=== PATIENT | male | born 1985 | race Caucasian/White ===

== ENCOUNTER 2016-07-19 08:38 | Emergency (ER) | payer OTHER ==
[2016-07-19] MEDS ORDERED: ONDANSETRON 4MG/2ML VIAL (J2405) As Ordered ONE (09:28)
[2016-07-19] MEDS ORDERED: KETOROLAC 30 MG/ML VIAL (J1885) As Ordered ONE (09:28)
[2016-07-19] MEDS ORDERED: GASTROGRAFIN SOLUTION 30ML (Q9963) As Ordered ONE (09:35)
[2016-07-19 09:49] LABS: BASO % 0.1 % (0.0-1.0); EOS % 0.8 % (0.0-3.0); LARGE UNSTAINED CELL # 0.1 K/mm3 (0.0-0.4); LARGE UNSTAINED CELL % 2.7 % (0.0-4.0); LYMPH % 30.2 % (24.0-44.0); MEAN CORPUSCULAR HEMOGLOBIN 30.4 pg (27.0-33.0); MEAN CORPUSCULAR HGB CONC 32.6 g/dl (32.0-36.5); MEAN CORPUSCULAR VOLUME 93.3 fl (80.0-96.0); MONO # 0.3 K/mm3 (0.0-0.8); NEUTROPHILS % 57.1 % (36.0-66.0); PLATELET COUNT, AUTOMATED 200 k/mm3 (150-450); RED CELL DISTRIBUTION WIDTH 11.9 % (11.5-14.5); WHITE BLOOD COUNT 3.4 K/mm3 (4.0-10.0)
[2016-07-19 10:06] LABS: ALBUMIN 4.2 GM/DL (3.2-5.2); ALKALINE PHOSPHATASE 56 U/L (45-117); ALT/SGPT 23 U/L (12-78); AMYLASE 72 U/L (25-115); ANION GAP 7 MEQ/L (8-16); AST/SGOT 12 U/L (15-37); BILIRUBIN,DIRECT 0.1 MG/DL (0.0-0.2); BILIRUBIN,TOTAL 0.4 MG/DL (0.2-1.0); BLOOD UREA NITROGEN 16 MG/DL (7-18); CALCIUM LEVEL 8.7 MG/DL (8.5-10.1); CARBON DIOXIDE LEVEL 29 MEQ/L (21-32); CHLORIDE LEVEL 105 MEQ/L (98-107); CREATININE FOR GFR 0.89 MG/DL (0.70-1.30); GLOMERULAR FILTRATION RATE > 60.0 (>60); GLUCOSE, FASTING 90 MG/DL (70-105); POTASSIUM SERUM 4.2 MEQ/L (3.5-5.1); SODIUM LEVEL 141 MEQ/L (136-145); TOTAL PROTEIN 7.7 GM/DL (6.4-8.2)
[2016-07-19] MEDS ORDERED: MORPHINE 4 MG/ML 1ML SYRINGE As Ordered ONE (10:36)
[2016-07-19] MEDS ORDERED: ISOVUE-370 76% 100ML VIAL (Q9967) As Ordered ONE (11:30)
--- NOTE | 2016-07-19 12:05 | REP ---
CT ABDOMEN/PELVIS WITH IV CONTRAST AND WITH ORAL CONTRAST: HISTORY: Right lower quadrant and left lower quadrant pain. Nausea, vomiting, and diarrhea. COMPARISON STUDY: June 15, 2015 CT CONTRAST DOSE: 100 mL of Isovue-[address] FINDINGS: Preliminary port engineer radiograph demonstrates air in nondilated loops of small bowel throughout the mid abdomen. The lung bases are clear on axial CT images. There is no evidence of pleural effusion. The liver and spleen are normal in size and homogeneous in texture. No adrenal lesion is seen. No pancreatic abnormality is observed. The gallbladder is unremarkable. No retroperitoneal mass or adenopathy is seen. Normal caliber aorta is noted. The kidneys enhance symmetrically and are morphologically intact. Small and large intestinal bowel loops are unremarkable in the abdomen and pelvis. A normal appendix is seen partially filled with oral barium. No periappendiceal inflammation. No evidence of free air or abnormal fluid collection. No bony destructive lesion or abdominal wall defect is seen. IMPRESSION: No acute intra-abdominal abnormality. Normal appendix seen in the right lower quadrant. Signed by Brandon Nicolas MD 07/19/2016 03:04 P
--- NOTE | 2016-07-19 12:20 | EDDOCDS ---
Physician Documentation [facility] Name: Jovani aShni Age: 31 yrs Sex: Male : 1985 Arrival Date: 07/19/2016 Time: 08:38 Bed I7 / 29 Private MD: Rosibel Pascual PA-C Disposition: 07/19/16 12:12 Discharged to Home/Self Care. Impression: Lower abdominal pain, unspecified. - Condition is Stable. - Discharge Instructions: Abdominal Pain, Adult. - Prescriptions for Bentyl 20 mg Oral Tablet - take 1 tablet by ORAL route every 6 hours As needed; 20 tablet. - Medication Reconciliation, Local Pharmacy Hours form. - Follow up: Emergency Department; When: As needed; Reason: Worsening of conditions. Follow up: Private Physician; When: 2 - 3 days; Reason: Wound/Symptom Recheck, Recheck today's complaints, Continuance of care. - Problem is new. - Symptoms are unchanged. Historical: - Allergies: no known allergies; - Home Meds: 1. Omeprazole Unknown Oral once daily 2. Depakote 500 mg Oral TbEC 2 tabs 2 times per day 3. Marinol 10 mg Oral cap 1 cap 2 times per day 4. prazosin 2 mg Oral cap 2 caps daily - PMHx: GERD; Migraine Headaches; PTSD; Lyme Disease; - PSHx: none; - Social history: Smoking status: Patient uses tobacco products, light tobacco smoker. No barriers to communication noted, The patient speaks fluent Greenlandic, Speaks appropriately for age. - Family history: Not pertinent. - : The pt / caregiver states he / she is not on anticoagulants. Home medication list is obtained from the patient. - Exposure Risk Screening:: None identified. Vital Signs: 07/19 09:06 BP 133 / 79; Pulse 74; Resp 16; Temp 98.6(TE); Pulse Ox 100% on R/A; Weight 65.32 kg / mlb1 144.01 lbs (R); Height 5 ft. 59 in. (302.26 cm) (R); Pain 5/10; 10:00 Pain 4/10; dsf 12:17 BP 142 / 82; Pulse 54; Resp 16; Temp 97.4; Pulse Ox 99% ; Pain 5/10; ja5 09:06 Body Mass Index 7.15 (65.32 kg, 302.26 cm) mlb1 MDM: 09:21 NS 0.9% 1000 ml IV at bolus once ordered. dt4 09:21 Ondansetron 4 mg IVP once ordered. dt4 09:21 ketorolac 30 mg IVP once ordered. dt4 09:21 IV Saline Lock ordered. dt4 09:21 Undress patient appropriately for examination ordered. dt4 09:22 CT ABD & PELVIS: IV and Oral Contrast Ordered. EDMS 09:23 Amylase Ordered. EDMS 09:23 Basic Metabolic Profile Ordered. EDMS 09:23 CBC with Diff Ordered. EDMS 09:23 Lipase Ordered. EDMS 09:23 Liver Profile Ordered. EDMS 09:23 Urinalysis Ordered. EDMS 09:23 CRP Ordered. EDMS 09:23 Urine Culture Ordered. EDMS 09:24 NOTHING BY MOUTH+DIET ordered. EDMS 09:45 Diatrizoate Meglumine & Sodium Liquid 10 ml PO once; mix in 290cc of water administer ja5 at 0945 ordered. 09:45 Diatrizoate Meglumine & Sodium Liquid 10 ml PO once; mix in 290cc of water administer ja5 at 1015 ordered. 09:49 Financial registration complete. mm15 10:04 [facility] Payment Agreement was scanned into [employer] and attached to record. mm15 10:30 morphine 4 mg IVP once ordered. dt4 Administered Medications: 09:36 Drug: NS 0.9% 1000 ml [sodium chloride 0.9 % injection solution] Route: IV; Rate: dsf bolus; Site: left antecubital; 11:22 Follow up: IV Status: Completed infusion; IV Intake: 1000ml jc4 09:36 Drug: Ondansetron 4 mg [ondansetron HCl 2 mg/mL intravenous solution (2 mL)] Route: dsf IVP; Site: left antecubital; 09:37 Drug: ketorolac 30 mg [ketorolac 30 mg/mL (1 mL) injection solution (1 mL)] Route: IVP; dsf Site: left antecubital; 10:00 Follow up: Pain 4/10 Adult; Response: Pain is unchanged, physician notified dsf 09:45 Drug: Diatrizoate Meglumine & Sodium 10 ml [diatrizoate meglumine and diat.sodium 66 jc4 %-10 % oral solution (10 mL)] Route: PO; 10:15 Drug: Diatrizoate Meglumine & Sodium 10 ml [diatrizoate meglumine and diat.sodium 66 jc4 %-10 % oral solution (10 mL)] Route: PO; 10:41 Not Given (pt driving ): morphine 4 mg IVP once dsf Signatures: Dispatcher [employer] EDAdilson Hernandez RN RN mlb1 Jaja Grijalva RN RN jc4 Merline Zee RN RN dsf Kostas Villatoro mm15 Little Ivy PA-C PALupe juarez4 Nadege ChoudhuryRN RN ja5 The chart was reviewed and I authenticate all verbal orders and agree with the evaluation and treatment provided.Attachments: 10:04 [facility] Payment Agreement mm15 MTDD
--- NOTE | 2016-07-19 12:21 | EDDOCDS ---
Nurse's Notes [facility] Name: Jovani Sahni Age: 31 yrs Sex: Male : 1985 Arrival Date: 07/19/2016 Time: 08:38 Bed I7 / 29 Private MD: Rosibel Pascual PA-C Diagnosis: Lower abdominal pain, unspecified Presentation: 07/19 09:02 Presenting complaint: Patient states: N/V/D and upset abdominal pain intermittent since mlb1 . Adult Sepsis Screening: The patient does not have new or worsening altered mentation. Patient's respiratory rate is less than 22. Systolic blood pressure is greater than 100. Patient has a qSOFA score of 0- Negative Sepsis Screen. Suicide/Homicide risk assessment- the patient denies having any suicidal and/or homicidal ideations and does not present with any other emotional, behavioral or mental health complaints. Status: Patient is not a private branch exchange service adviser or dependent. Transition of care: patient was not received from another setting of care. 09:02 Acuity: BC Level 3 mlb1 09:02 Method Of Arrival: Walkin/Carried/Asstd mlb1 Triage Assessment: 09:06 General: Appears in no apparent distress, Behavior is appropriate for age, cooperative. mlb1 Pain: Location: abdomen Pain currently is 4 out of 10 on a pain scale. HIV screening NA for this visit Offered previously. GI: Reports diarrhea, nausea, vomiting. Historical: - Allergies: no known allergies; - Home Meds: 1. Omeprazole Unknown Oral once daily 2. Depakote 500 mg Oral TbEC 2 tabs 2 times per day 3. Marinol 10 mg Oral cap 1 cap 2 times per day 4. prazosin 2 mg Oral cap 2 caps daily - PMHx: GERD; Migraine Headaches; PTSD; Lyme Disease; - PSHx: none; - Social history: Smoking status: Patient uses tobacco products, light tobacco smoker. No barriers to communication noted, The patient speaks fluent Salvadorean, Speaks appropriately for age. - Family history: Not pertinent. - : The pt / caregiver states he / she is not on anticoagulants. Home medication list is obtained from the patient. - Exposure Risk Screening:: None identified. Screenin:48 Screening information is obtained from the patient. Fall risk: No risks identified. ja5 Assistance ADL's: requires no assistance with activities of daily living. Abuse/DV Screen: The patient / caregiver reports he/she is: not in a situation that causes fear, pain or injury. Nutritional screening: On no prescribed diet. Advance Directives: Currently, there is no health care proxy. There is no active DNR order. There is no living will. There is no Power of Fibrous Plasterer. home support is adequate. Assessment: 09:46 General: Appears in no apparent distress, Behavior is appropriate for age, cooperative. ja5 Pain: Location: right lower quadrant and left lower quadrant Pain currently is 4 out of 10 on a pain scale. Neurological: Level of Consciousness is awake, alert, Oriented to person, place, time. Cardiovascular: Capillary refill < 3 seconds Heart tones S1 S2. Respiratory: Airway is patent Respiratory effort is even, unlabored, Respiratory pattern is regular, symmetrical. GI: Abdomen is flat, non- distended Bowel sounds hypoactive in right upper quadrant, left upper quadrant, right lower quadrant and left lower quadrant Abd is soft X 4 quads Abd is tender to palpation in right lower quadrant and left lower quadrant. Derm: Skin is intact, Skin is pink, warm & dry. 10:23 General: Pt resting on stretcher. Sipping on contrast. No distress noted at this time. jc4 Ambulatory to bathroom. Gait steady and brisk. 12:19 Adult Sepsis Screening: The patient does not have new or worsening altered mentation. dsf Patient's respiratory rate is less than 22. Systolic blood pressure is greater than 100. Patient has a qSOFA score of 0- Negative Sepsis Screen. General: Appears in no apparent distress, Behavior is appropriate for age, cooperative. Pain: Location: abdomen Pain currently is 5 out of 10 on a pain scale. Neurological: Level of Consciousness is awake, alert. Cardiovascular: Capillary refill < 3 seconds. Respiratory: Airway is patent Respiratory effort is even, unlabored, Respiratory pattern is regular, symmetrical. Derm: Skin is pink, warm & dry. Vital Signs: 09:06 BP 133 / 79; Pulse 74; Resp 16; Temp 98.6(TE); Pulse Ox 100% on R/A; Weight 65.32 kg mlb1 (R); Height 5 ft. 59 in. (302.26 cm) (R); Pain 5/10; 10:00 Pain 4/10; dsf 12:17 BP 142 / 82; Pulse 54; Resp 16; Temp 97.4; Pulse Ox 99% ; Pain 5/10; ja5 09:06 Body Mass Index 7.15 (65.32 kg, 302.26 cm) mlb1 Vitals: 09:06 Log In Time: July 19, 2016 at 08:35. mlb1 ED Course: 08:40 Patient visited by Kostas Villatoro. mm15 08:40 Rosibel Pascual is Private Physician. mm15 08:40 Patient moved to Waiting mm15 09:02 Patient visited by Adilson Gay, KYLE. mlb1 09:03 Triage Initiated mlb1 09:07 Patient visited by Adilson Gay, KYLE. mlb1 09:11 Patient moved to Triage 3 mlb1 09:12 Little Ivy [facility]. dt4 09:12 Dane Jackson MD is Attending Physician. dt4 09:12 Patient visited by Little Ivy PA-C. dt4 09:23 Jaja Grijalva RN is Primary Nurse. mlb1 09:23 Nadege Choudhury RN is Primary Nurse. mlb1 09:23 Patient moved to I mlb1 09:30 Urinalysis Sent. ct3 09:30 Urine Culture Sent. ct3 09:43 Inserted saline lock: 20 gauge in left antecubital area The patient tolerated the jc4 procedure well. 10:04 [facility] Payment Agreement was scanned into [employer] and attached to record. mm15 10:22 Patient visited by Jaja Grijalva RN. jc4 10:24 Unable to instruct regarding the plan of care due to patient condition. jc4 11:22 Patient visited by Jaja Grijalva RN. jc4 12:09 CT ABD & PELVIS: IV and Oral Contrast Returned. EDMS 12:16 No procedures done that require assistance. dsf 12:18 Discontinued lock intact, bleeding controlled, pressure dressing applied, No ja5 redness/swelling at site. Administered Medications: 09:36 Drug: NS 0.9% 1000 ml [sodium chloride 0.9 % injection solution] Route: IV; Rate: dsf bolus; Site: left antecubital; 11:22 Follow up: IV Status: Completed infusion; IV Intake: 1000ml jc4 09:36 Drug: Ondansetron 4 mg [ondansetron HCl 2 mg/mL intravenous solution (2 mL)] Route: dsf IVP; Site: left antecubital; 09:37 Drug: ketorolac 30 mg [ketorolac 30 mg/mL (1 mL) injection solution (1 mL)] Route: IVP; dsf Site: left antecubital; 10:00 Follow up: Pain 09/18 Adult; Response: Pain is unchanged, physician notified dsf 09:45 Drug: Diatrizoate Meglumine & Sodium 10 ml [diatrizoate meglumine and diat.sodium 66 jc4 %-10 % oral solution (10 mL)] Route: PO; 10:15 Drug: Diatrizoate Meglumine & Sodium 10 ml [diatrizoate meglumine and diat.sodium 66 jc4 %-10 % oral solution (10 mL)] Route: PO; 10:41 Not Given (pt driving ): morphine 4 mg IVP once dsf Intake: 09:45 PO: 300.00ml (Contrast); Total: 300.00ml. jc4 10:15 PO: 300.00ml (Contrast); Total: 600.00ml. jc4 11:22 IV: 1000.00ml; Total: 1600.00ml. jc4 Order Results: Lab Order: Amylase; SPEC'M 07/19/16 09:27 Test: AMYLASE; Value: 72; Range: 25-115; Units: U/L; Status: F Lab Order: Basic Metabolic Profile; SPEC'M 07/19/16 09:27 Test: GLUCOSE, FASTING; Value: 90; Range: 70-105; Units: MG/DL; Status: F Test: BLOOD UREA NITROGEN; Value: 16; Range: 7-18; Units: MG/DL; Status: F Test: CREATININE FOR GFR; Value: 0.89; Range: 0.70-1.30; Units: MG/DL; Status: F Test: GLOMERULAR FILTRATION RATE; Value: > 60.0; Range: >60; Status: F Test: SODIUM LEVEL; Value: 141; Range: 136-145; Units: MEQ/L; Status: F Test: POTASSIUM SERUM; Value: 4.2; Range: 3.5-5.1; Units: MEQ/L; Status: F Test: CHLORIDE LEVEL; Value: 105; Range: 98-107; Units: MEQ/L; Status: F Test: CARBON DIOXIDE LEVEL; Value: 29; Range: 21-32; Units: MEQ/L; Status: F Test: ANION GAP; Value: 7; Range: 8-16; Abnormal: Below low normal; Units: MEQ/L; Status: F Test: CALCIUM LEVEL; Value: 8.7; Range: 8.5-10.1; Units: MG/DL; Status: F Test Note: ; Units are mL/min/1.73 m2 Chronic Kidney Disease Staging per NKF: Stage I & II GFR >=60 Normal to Mildly Decreased Stage III GFR 30-59 Moderately Decreased Stage IV GFR 15-29 Severely Decreased Stage V GFR <15 Very Little GFR Left ESRD GFR <15 on BUSINESS MAIL ENTRY CLERK Lab Order: CBC with Diff; SPEC'M 07/19/16 09:27 Test: BASO %; Value: 0.1; Range: 0.0-1.0; Units: %; Status: F Test: LARGE UNSTAINED CELL %; Value: 2.7; Range: 0.0-4.0; Units: %; Status: F Test: NEUTROPHILS #; Value: 2.0; Range: 1.8-7.7; Units: K/mm3; Status: F Test: LYMPH #; Value: 1.0; Range: 1.5-4.5; Abnormal: Below low normal; Units: K/mm3; Status: F Test: MONO #; Value: 0.3; Range: 0.0-0.8; Units: K/mm3; Status: F Test: EOS #; Value: 0.0; Range: 0.0-0.50; Units: K/mm3; Status: F Test: BASO #; Value: 0.0; Range: 0.0-0.2; Units: K/mm3; Status: F Test: LARGE UNSTAINED CELL #; Value: 0.1; Range: 0.0-0.4; Units: K/mm3; Status: F Test: WHITE BLOOD COUNT; Value: 3.4; Range: 4.0-10.0; Abnormal: Below low normal; Units: K/mm3; Status: F Test: RED BLOOD COUNT; Value: 4.43; Range: 4.30-6.10; Units: M/mm3; Status: F Test: HEMOGLOBIN; Value: 13.5; Range: 14.0-18.0; Abnormal: Below low normal; Units: g/dl; Status: F Test: HEMATOCRIT; Value: 41.3; Range: 42.0-52.0; Abnormal: Below low normal; Units: %; Status: F Test: MEAN CORPUSCULAR VOLUME; Value: 93.3; Range: 80.0-96.0; Units: fl; Status: F Test: MEAN CORPUSCULAR HEMOGLOBIN; Value: 30.4; Range: 27.0-33.0; Units: pg; Status: F Test: MEAN CORPUSCULAR HGB CONC; Value: 32.6; Range: 32.0-36.5; Units: g/dl; Status: F Test: RED CELL DISTRIBUTION WIDTH; Value: 11.9; Range: 11.5-14.5; Units: %; Status: F Test: PLATELET COUNT, AUTOMATED; Value: 200; Range: 150-450; Units: k/mm3; Status: F Test: NEUTROPHILS %; Value: 57.1; Range: 36.0-66.0; Units: %; Status: F Test: LYMPH %; Value: 30.2; Range: 24.0-44.0; Units: %; Status: F Test: MONO %; Value: 9.0; Range: 0.0-5.0; Abnormal: Above high normal; Units: %; Status: F Test: EOS %; Value: 0.8; Range: 0.0-3.0; Units: %; Status: F Lab Order: Lipase; SPEC'M 07/19/16 09:27 Test: LIPASE; Value: 78; Range: 73-393; Units: U/L; Status: F Lab Order: Liver Profile; SPEC'M 07/19/16 09:27 Test: AST/SGOT; Value: 12; Range: 15-37; Abnormal: Below low normal; Units: U/L; Status: F Test: ALT/SGPT; Value: 23; Range: 12-78; Units: U/L; Status: F Test: ALKALINE PHOSPHATASE; Value: 56; Range: 45-117; Units: U/L; Status: F Test: BILIRUBIN,TOTAL; Value: 0.4; Range: 0.2-1.0; Units: MG/DL; Status: F Test: BILIRUBIN,DIRECT; Value: 0.1; Range: 0.0-0.2; Units: MG/DL; Status: F Test: TOTAL PROTEIN; Value: 7.7; Range: 6.4-8.2; Units: GM/DL; Status: F Test: ALBUMIN; Value: 4.2; Range: 3.2-5.2; Units: GM/DL; Status: F Test: ALBUMIN/GLOBULIN RATIO; Value: 1.20; Range: 1.00-1.93; Status: F Lab Order: Urinalysis; SPEC'M 07/19/16 09:27 Test: APPEARANCE, URINE; Value: CLEAR; Range: CLEAR; Status: F Test: COLOR, URINE; Value: YELLOW; Range: YELLOW; Status: F Test: PH,URINE; Value: 7.0; Range: 5.0-9.0; Units: UNITS; Status: F Test: SPECIFIC GRAVITY URINE AUTO; Value: 1.017; Range: 1.002-1.035; Status: F Test: PROTEIN, URINE AUTO; Value: NEGATIVE; Range: NEGATIVE; Units: mg/dL; Status: F Test: GLUCOSE, URINE (UA) AUTO; Value: NEGATIVE; Range: NEGATIVE; Units: mg/dL; Status: F Test: KETONE, URINE AUTO; Value: TRACE; Range: NEGATIVE; Abnormal: Above high normal; Units: mg/dL; Status: F Test: UROBILINOGEN, URINE AUTO; Value: 0.2; Range: 0.0-2.0; Units: mg/dL; Status: F Test: BILIRUBIN, URINE AUTO; Value: NEGATIVE; Range: NEGATIVE; Status: F Test: NITRITE, URINE AUTO; Value: NEGATIVE; Range: NEGATIVE; Status: F Test: LEUKOCYTE ESTERASE, URINE AUTO; Value: NEGATIVE; Range: NEGATIVE; Status: F Test: BLOOD, URINE BLOOD; Value: NEGATIVE; Range: NEGATIVE; Status: F Test: WBC, URINE AUTO; Value: 0; Range: 0-3; Units: /HPF; Status: F Test: RBC, URINE AUTO; Value: 2; Range: 0-3; Units: /HPF; Status: F Test: BACTERIA, URINE AUTO; Value: NEGATIVE; Range: NEGATIVE; Status: F Test: SQUAMOUS EPITHELIAL CELL UR AU; Value: 0; Range: 0-6; Units: /HPF; Status: F Test: MUCUS, URINE; Value: SMALL; Range: NEGATIVE; Status: F Test: HYALINE CAST, URINE AUTO; Value: 0; Range: 0-1; Units: /LPF; Status: F Lab Order: CRP; SPEC'M 07/19/16 09:27 Test: C REACTIVE PROTEIN QUANTITATIV; Value: < 0.30; Range: 0.00-0.30; Units: MG/DL; Status: F Radiology Order: CT ABD & PELVIS: IV and Oral Contrast Test: CT ABD & PELVIS: IV and Oral Contrast REASON FOR EXAMINATION: rlq, llq pain, n/v/d; CT ABDOMEN/PELVIS WITH IV CONTRAST AND WITH ORAL CONTRAST:; ; HISTORY: Right lower quadrant and left lower quadrant pain. Nausea, vomiting,; and diarrhea.; ; COMPARISON STUDY: June 15, 2015; ; CT CONTRAST DOSE: 100 mL of Isovue-370 is administered intravenously.; ; CT FINDINGS: Preliminary continuous churn buttermaker radiograph demonstrates air in nondilated loops; of small bowel throughout the mid abdomen. The lung bases are clear on axial CT; images. There is no evidence of pleural effusion. The liver and spleen are; normal in size and homogeneous in texture. No adrenal lesion is seen. No; pancreatic abnormality is observed. The gallbladder is unremarkable. No; retroperitoneal mass or adenopathy is seen. Normal caliber aorta is noted. The; kidneys enhance symmetrically and are morphologically intact. Small and large; intestinal bowel loops are unremarkable in the abdomen and pelvis. A normal; appendix is seen partially filled with oral barium. No periappendiceal; inflammation. No evidence of free air or abnormal fluid collection. No bony; destructive lesion or abdominal wall defect is seen.; ; IMPRESSION:; No acute intra-abdominal abnormality. Normal appendix seen in the right lower; quadrant.; ; ; ; ; Unreviewed; Outcome: 12:12 Discharge ordered by Provider. dt4 12:18 Discharge Assessment: Patient awake, alert and oriented x 3. No cognitive and/or dsf functional deficits noted. Patient verbalized understanding of disposition instructions. patient administered narcotics - no. The following High Risk Discharge criteria are identified: None. Discharged to home ambulatory. Condition: stable. Discharge instructions given to patient, Instructed on discharge instructions, follow up and referral plans. medication usage, Demonstrated understanding of instructions, medications, Pt was receptive of discharge instructions/ teaching. Prescriptions given X 1. CT Study completed. Property sent home with patient. 12:19 Patient left the ED. dsf Signatures: Dispatcher [employer] EDAdilson Hernandez RN RN mlb1 Jaja Grijalva RN RN jc4 Chaparrita Preciado, CATEGORY ANALYST CATEGORY ANALYST ct3 Merline ZeeRN RN dsf Kostas Villatoro mm15 Little Ivy PA-C PALupe dt4 Nadege Choudhury,RN RN ja5 MTDD
--- NOTE | 2016-07-21 13:21 | EDDOCDS ---
Physician Documentation [facility] Name: Jovani Sahni Age: 31 yrs Sex: Male : 1985 Arrival Date: 07/19/2016 Time: 08:38 Bed I7 / 29 Private MD: Rosibel Pascual PA-C Disposition: 07/19/16 12:12 Discharged to Home/Self Care. Impression: Lower abdominal pain, unspecified. - Condition is Stable. - Discharge Instructions: Abdominal Pain, Adult. - Prescriptions for Bentyl 20 mg Oral Tablet - take 1 tablet by ORAL route every 6 hours As needed; 20 tablet. - Medication Reconciliation, Local Pharmacy Hours form. - Follow up: Emergency Department; When: As needed; Reason: Worsening of conditions. Follow up: Private Physician; When: 2 - 3 days; Reason: Wound/Symptom Recheck, Recheck today's complaints, Continuance of care. - Problem is new. - Symptoms are unchanged. Historical: - Allergies: no known allergies; - Home Meds: 1. Omeprazole Unknown Oral once daily 2. Depakote 500 mg Oral TbEC 2 tabs 2 times per day 3. Marinol 10 mg Oral cap 1 cap 2 times per day 4. prazosin 2 mg Oral cap 2 caps daily - PMHx: GERD; Migraine Headaches; PTSD; Lyme Disease; - PSHx: none; - Social history: Smoking status: Patient uses tobacco products, light tobacco smoker. No barriers to communication noted, The patient speaks fluent [place] Korean, Speaks appropriately for age. - Family history: Not pertinent. - : The pt / caregiver states he / she is not on anticoagulants. Home medication list is obtained from the patient. - Exposure Risk Screening:: None identified. Vital Signs: 07/19 09:06 BP 133 / 79; Pulse 74; Resp 16; Temp 98.6(TE); Pulse Ox 100% on R/A; Weight 65.32 kg / mlb1 144.01 lbs (R); Height 5 ft. 59 in. (302.26 cm) (R); Pain 5/10; 10:00 Pain 4/10; dsf 12:17 BP 142 / 82; Pulse 54; Resp 16; Temp 97.4; Pulse Ox 99% ; Pain 5/10; ja5 09:06 Body Mass Index 7.15 (65.32 kg, 302.26 cm) mlb1 MDM: 09:21 NS 0.9% 1000 ml IV at bolus once ordered. dt4 09:21 Ondansetron 4 mg IVP once ordered. dt4 09:21 ketorolac 30 mg IVP once ordered. dt4 09:21 IV Saline Lock ordered. dt4 09:21 Undress patient appropriately for examination ordered. dt4 09:22 CT ABD & PELVIS: IV and Oral Contrast Ordered. EDMS 09:23 Amylase Ordered. EDMS 09:23 Basic Metabolic Profile Ordered. EDMS 09:23 CBC with Diff Ordered. EDMS 09:23 Lipase Ordered. EDMS 09:23 Liver Profile Ordered. EDMS 09:23 Urinalysis Ordered. EDMS 09:23 CRP Ordered. EDMS 09:23 Urine Culture Ordered. EDMS 09:24 NOTHING BY MOUTH+DIET ordered. EDMS 09:45 Diatrizoate Meglumine & Sodium Liquid 10 ml PO once; mix in 290cc of water administer ja5 at 0945 ordered. 09:45 Diatrizoate Meglumine & Sodium Liquid 10 ml PO once; mix in 290cc of water administer ja5 at 1015 ordered. 09:49 Financial registration complete. mm15 10:04 [facility] Payment Agreement was scanned into [employer] and attached to record. mm15 10:30 morphine 4 mg IVP once ordered. dt4 15:45 T-Sheet-- Draft Copy was scanned into [employer] and attached to record. gb 15:45 Radiology Report was scanned into [employer] and attached to record. gb Administered Medications: 09:36 Drug: NS 0.9% 1000 ml [sodium chloride 0.9 % injection solution] Route: IV; Rate: dsf bolus; Site: left antecubital; 11:22 Follow up: IV Status: Completed infusion; IV Intake: 1000ml jc4 09:36 Drug: Ondansetron 4 mg [ondansetron HCl 2 mg/mL intravenous solution (2 mL)] Route: dsf IVP; Site: left antecubital; 09:37 Drug: ketorolac 30 mg [ketorolac 30 mg/mL (1 mL) injection solution (1 mL)] Route: IVP; dsf Site: left antecubital; 10:00 Follow up: Pain 4/10 Adult; Response: Pain is unchanged, physician notified dsf 09:45 Drug: Diatrizoate Meglumine & Sodium 10 ml [diatrizoate meglumine and diat.sodium 66 jc4 %-10 % oral solution (10 mL)] Route: PO; 10:15 Drug: Diatrizoate Meglumine & Sodium 10 ml [diatrizoate meglumine and diat.sodium 66 jc4 %-10 % oral solution (10 mL)] Route: PO; 10:41 Not Given (pt driving ): morphine 4 mg IVP once dsf Signatures: Dispatcher [employer] EDMS Colleen Cruz, Reg Reg gb Victor Hugo, Adilson Strauss RN RN mlb1 Jaja Grijalva RN RN jc4 Merline ZeeRN RN dsf Kostas Villatoro mm15 Little Ivy PA-C PALupe dt4 Nadege Choudhury,RN RN ja5 The chart was reviewed and I authenticate all verbal orders and agree with the evaluation and treatment provided.Attachments: 10:04 [facility] Payment Agreement mm15 15:45 T-Sheet-- Draft Copy gb Chart [facility]
--- NOTE | 2016-07-21 13:21 | EDDOCDS ---
Nurse's Notes [facility] Name: Jovani Sahni Age: 31 yrs Sex: Male : 1985 Arrival Date: 07/19/2016 Time: 08:38 Bed I7 / 29 Private MD: Rosibel Pascual PA-C Diagnosis: Lower abdominal pain, unspecified Presentation: 07/19 09:02 Presenting complaint: Patient states: N/V/D and upset abdominal pain intermittent since mlb1 . Adult Sepsis Screening: The patient does not have new or worsening altered mentation. Patient's respiratory rate is less than 22. Systolic blood pressure is greater than 100. Patient has a qSOFA score of 0- Negative Sepsis Screen. Suicide/Homicide risk assessment- the patient denies having any suicidal and/or homicidal ideations and does not present with any other emotional, behavioral or mental health complaints. Status: Patient is not a director of clinical services or dependent. Transition of care: patient was not received from another setting of care. 09:02 Acuity: BC Level 3 mlb1 09:02 Method Of Arrival: Walkin/Carried/Asstd mlb1 Triage Assessment: 09:06 General: Appears in no apparent distress, Behavior is appropriate for age, cooperative. mlb1 Pain: Location: abdomen Pain currently is 4 out of 10 on a pain scale. HIV screening NA for this visit Offered previously. GI: Reports diarrhea, nausea, vomiting. Historical: - Allergies: no known allergies; - Home Meds: 1. Omeprazole Unknown Oral once daily 2. Depakote 500 mg Oral TbEC 2 tabs 2 times per day 3. Marinol 10 mg Oral cap 1 cap 2 times per day 4. prazosin 2 mg Oral cap 2 caps daily - PMHx: GERD; Migraine Headaches; PTSD; Lyme Disease; - PSHx: none; - Social history: Smoking status: Patient uses tobacco products, light tobacco smoker. No barriers to communication noted, The patient speaks fluent Nepalese, Speaks appropriately for age. - Family history: Not pertinent. - : The pt / caregiver states he / she is not on anticoagulants. Home medication list is obtained from the patient. - Exposure Risk Screening:: None identified. Screenin:48 Screening information is obtained from the patient. Fall risk: No risks identified. ja5 Assistance ADL's: requires no assistance with activities of daily living. Abuse/DV Screen: The patient / caregiver reports he/she is: not in a situation that causes fear, pain or injury. Nutritional screening: On no prescribed diet. Advance Directives: Currently, there is no health care proxy. There is no active DNR order. There is no living will. There is no Power of Game Agent. home support is adequate. Assessment: 09:46 General: Appears in no apparent distress, Behavior is appropriate for age, cooperative. ja5 Pain: Location: right lower quadrant and left lower quadrant Pain currently is 4 out of 10 on a pain scale. Neurological: Level of Consciousness is awake, alert, Oriented to person, place, time. Cardiovascular: Capillary refill < 3 seconds Heart tones S1 S2. Respiratory: Airway is patent Respiratory effort is even, unlabored, Respiratory pattern is regular, symmetrical. GI: Abdomen is flat, non- distended Bowel sounds hypoactive in right upper quadrant, left upper quadrant, right lower quadrant and left lower quadrant Abd is soft X 4 quads Abd is tender to palpation in right lower quadrant and left lower quadrant. Derm: Skin is intact, Skin is pink, warm & dry. 10:23 General: Pt resting on stretcher. Sipping on contrast. No distress noted at this time. jc4 Ambulatory to bathroom. Gait steady and brisk. 12:19 Adult Sepsis Screening: The patient does not have new or worsening altered mentation. dsf Patient's respiratory rate is less than 22. Systolic blood pressure is greater than 100. Patient has a qSOFA score of 0- Negative Sepsis Screen. General: Appears in no apparent distress, Behavior is appropriate for age, cooperative. Pain: Location: abdomen Pain currently is 5 out of 10 on a pain scale. Neurological: Level of Consciousness is awake, alert. Cardiovascular: Capillary refill < 3 seconds. Respiratory: Airway is patent Respiratory effort is even, unlabored, Respiratory pattern is regular, symmetrical. Derm: Skin is pink, warm & dry. Vital Signs: 09:06 BP 133 / 79; Pulse 74; Resp 16; Temp 98.6(TE); Pulse Ox 100% on R/A; Weight 65.32 kg mlb1 (R); Height 5 ft. 59 in. (302.26 cm) (R); Pain 5/10; 10:00 Pain 4/10; dsf 12:17 BP 142 / 82; Pulse 54; Resp 16; Temp 97.4; Pulse Ox 99% ; Pain 5/10; ja5 09:06 Body Mass Index 7.15 (65.32 kg, 302.26 cm) mlb1 Vitals: 09:06 Log In Time: July 19, 2016 at 08:35. mlb1 ED Course: 08:40 Patient visited by Kostas Villatoro. mm15 08:40 Rosibel Pascual is Private Physician. mm15 08:40 Patient moved to Waiting mm15 09:02 Patient visited by Adilson Gay, KYLE. mlb1 09:03 Triage Initiated mlb1 09:07 Patient visited by Adilson Gay, KYLE. mlb1 09:11 Patient moved to Triage 3 mlb1 09:12 Little Ivy PA-C is [facility]. dt4 09:12 Dane Jackson MD is Attending Physician. dt4 09:12 Patient visited by Little Ivy PA-C. dt4 09:23 Jaja Grijalva RN is Primary Nurse. mlb1 09:23 Nadege Choudhury RN is Primary Nurse. mlb1 09:23 Patient moved to I mlb1 09:30 Urinalysis Sent. ct3 09:30 Urine Culture Sent. ct3 09:43 Inserted saline lock: 20 gauge in left antecubital area The patient tolerated the jc4 procedure well. 10:04 [facility] Payment Agreement was scanned into [employer] and attached to record. mm15 10:22 Patient visited by Jaja Grijalva RN. jc4 10:24 Unable to instruct regarding the plan of care due to patient condition. jc4 11:22 Patient visited by Jaja Grijalva RN. jc4 12:09 CT ABD & PELVIS: IV and Oral Contrast Returned. EDMS 12:16 No procedures done that require assistance. dsf 12:18 Discontinued lock intact, bleeding controlled, pressure dressing applied, No ja5 redness/swelling at site. 15:45 T-Sheet-- Draft Copy was scanned into [employer] and attached to record. gb 15:45 Radiology Report was scanned into [employer] and attached to record. gb Administered Medications: 09:36 Drug: NS 0.9% 1000 ml [sodium chloride 0.9 % injection solution] Route: IV; Rate: dsf bolus; Site: left antecubital; 11:22 Follow up: IV Status: Completed infusion; IV Intake: 1000ml jc4 09:36 Drug: Ondansetron 4 mg [ondansetron HCl 2 mg/mL intravenous solution (2 mL)] Route: dsf IVP; Site: left antecubital; 09:37 Drug: ketorolac 30 mg [ketorolac 30 mg/mL (1 mL) injection solution (1 mL)] Route: IVP; dsf Site: left antecubital; 10:00 Follow up: Pain 09/18 Adult; Response: Pain is unchanged, physician notified dsf 09:45 Drug: Diatrizoate Meglumine & Sodium 10 ml [diatrizoate meglumine and diat.sodium 66 jc4 %-10 % oral solution (10 mL)] Route: PO; 10:15 Drug: Diatrizoate Meglumine & Sodium 10 ml [diatrizoate meglumine and diat.sodium 66 jc4 %-10 % oral solution (10 mL)] Route: PO; 10:41 Not Given (pt driving ): morphine 4 mg IVP once dsf Intake: 09:45 PO: 300.00ml (Contrast); Total: 300.00ml. jc4 10:15 PO: 300.00ml (Contrast); Total: 600.00ml. jc4 11:22 IV: 1000.00ml; Total: 1600.00ml. jc4 Order Results: Lab Order: Amylase; SPEC'M 07/19/16 09:27 Test: AMYLASE; Value: 72; Range: 25-115; Units: U/L; Status: F Lab Order: Basic Metabolic Profile; SPEC'M 07/19/16 09:27 Test: GLUCOSE, FASTING; Value: 90; Range: 70-105; Units: MG/DL; Status: F Test: BLOOD UREA NITROGEN; Value: 16; Range: 7-18; Units: MG/DL; Status: F Test: CREATININE FOR GFR; Value: 0.89; Range: 0.70-1.30; Units: MG/DL; Status: F Test: GLOMERULAR FILTRATION RATE; Value: > 60.0; Range: >60; Status: F Test: SODIUM LEVEL; Value: 141; Range: 136-145; Units: MEQ/L; Status: F Test: POTASSIUM SERUM; Value: 4.2; Range: 3.5-5.1; Units: MEQ/L; Status: F Test: CHLORIDE LEVEL; Value: 105; Range: 98-107; Units: MEQ/L; Status: F Test: CARBON DIOXIDE LEVEL; Value: 29; Range: 21-32; Units: MEQ/L; Status: F Test: ANION GAP; Value: 7; Range: 8-16; Abnormal: Below low normal; Units: MEQ/L; Status: F Test: CALCIUM LEVEL; Value: 8.7; Range: 8.5-10.1; Units: MG/DL; Status: F Test Note: ; Units are mL/min/1.73 m2 Chronic Kidney Disease Staging per NKF: Stage I & II GFR >=60 Normal to Mildly Decreased Stage III GFR 30-59 Moderately Decreased Stage IV GFR 15-29 Severely Decreased Stage V GFR <15 Very Little GFR Left ESRD GFR <15 on [employer] Lab Order: CBC with Diff; SPEC'M 07/19/16 09:27 Test: BASO %; Value: 0.1; Range: 0.0-1.0; Units: %; Status: F Test: LARGE UNSTAINED CELL %; Value: 2.7; Range: 0.0-4.0; Units: %; Status: F Test: NEUTROPHILS #; Value: 2.0; Range: 1.8-7.7; Units: K/mm3; Status: F Test: LYMPH #; Value: 1.0; Range: 1.5-4.5; Abnormal: Below low normal; Units: K/mm3; Status: F Test: MONO #; Value: 0.3; Range: 0.0-0.8; Units: K/mm3; Status: F Test: EOS #; Value: 0.0; Range: 0.0-0.50; Units: K/mm3; Status: F Test: BASO #; Value: 0.0; Range: 0.0-0.2; Units: K/mm3; Status: F Test: LARGE UNSTAINED CELL #; Value: 0.1; Range: 0.0-0.4; Units: K/mm3; Status: F Test: WHITE BLOOD COUNT; Value: 3.4; Range: 4.0-10.0; Abnormal: Below low normal; Units: K/mm3; Status: F Test: RED BLOOD COUNT; Value: 4.43; Range: 4.30-6.10; Units: M/mm3; Status: F Test: HEMOGLOBIN; Value: 13.5; Range: 14.0-18.0; Abnormal: Below low normal; Units: g/dl; Status: F Test: HEMATOCRIT; Value: 41.3; Range: 42.0-52.0; Abnormal: Below low normal; Units: %; Status: F Test: MEAN CORPUSCULAR VOLUME; Value: 93.3; Range: 80.0-96.0; Units: fl; Status: F Test: MEAN CORPUSCULAR HEMOGLOBIN; Value: 30.4; Range: 27.0-33.0; Units: pg; Status: F Test: MEAN CORPUSCULAR HGB CONC; Value: 32.6; Range: 32.0-36.5; Units: g/dl; Status: F Test: RED CELL DISTRIBUTION WIDTH; Value: 11.9; Range: 11.5-14.5; Units: %; Status: F Test: PLATELET COUNT, AUTOMATED; Value: 200; Range: 150-450; Units: k/mm3; Status: F Test: NEUTROPHILS %; Value: 57.1; Range: 36.0-66.0; Units: %; Status: F Test: LYMPH %; Value: 30.2; Range: 24.0-44.0; Units: %; Status: F Test: MONO %; Value: 9.0; Range: 0.0-5.0; Abnormal: Above high normal; Units: %; Status: F Test: EOS %; Value: 0.8; Range: 0.0-3.0; Units: %; Status: F Lab Order: Lipase; SPEC07/19/16 09:27 Test: LIPASE; Value: 78; Range: 73-393; Units: U/L; Status: F Lab Order: Liver Profile; SPEC07/19/16 09:27 Test: AST/SGOT; Value: 12; Range: 15-37; Abnormal: Below low normal; Units: U/L; Status: F Test: ALT/SGPT; Value: 23; Range: 12-78; Units: U/L; Status: F Test: ALKALINE PHOSPHATASE; Value: 56; Range: 45-117; Units: U/L; Status: F Test: BILIRUBIN,TOTAL; Value: 0.4; Range: 0.2-1.0; Units: MG/DL; Status: F Test: BILIRUBIN,DIRECT; Value: 0.1; Range: 0.0-0.2; Units: MG/DL; Status: F Test: TOTAL PROTEIN; Value: 7.7; Range: 6.4-8.2; Units: GM/DL; Status: F Test: ALBUMIN; Value: 4.2; Range: 3.2-5.2; Units: GM/DL; Status: F Test: ALBUMIN/GLOBULIN RATIO; Value: 1.20; Range: 1.00-1.93; Status: F Lab Order: Urinalysis; SPEC'M 07/19/16 09:27 Test: APPEARANCE, URINE; Value: CLEAR; Range: CLEAR; Status: F Test: COLOR, URINE; Value: YELLOW; Range: YELLOW; Status: F Test: PH,URINE; Value: 7.0; Range: 5.0-9.0; Units: UNITS; Status: F Test: SPECIFIC GRAVITY URINE AUTO; Value: 1.017; Range: 1.002-1.035; Status: F Test: PROTEIN, URINE AUTO; Value: NEGATIVE; Range: NEGATIVE; Units: mg/dL; Status: F Test: GLUCOSE, URINE (UA) AUTO; Value: NEGATIVE; Range: NEGATIVE; Units: mg/dL; Status: F Test: KETONE, URINE AUTO; Value: TRACE; Range: NEGATIVE; Abnormal: Above high normal; Units: mg/dL; Status: F Test: UROBILINOGEN, URINE AUTO; Value: 0.2; Range: 0.0-2.0; Units: mg/dL; Status: F Test: BILIRUBIN, URINE AUTO; Value: NEGATIVE; Range: NEGATIVE; Status: F Test: NITRITE, URINE AUTO; Value: NEGATIVE; Range: NEGATIVE; Status: F Test: LEUKOCYTE ESTERASE, URINE AUTO; Value: NEGATIVE; Range: NEGATIVE; Status: F Test: BLOOD, URINE BLOOD; Value: NEGATIVE; Range: NEGATIVE; Status: F Test: WBC, URINE AUTO; Value: 0; Range: 0-3; Units: /HPF; Status: F Test: RBC, URINE AUTO; Value: 2; Range: 0-3; Units: /HPF; Status: F Test: BACTERIA, URINE AUTO; Value: NEGATIVE; Range: NEGATIVE; Status: F Test: SQUAMOUS EPITHELIAL CELL UR AU; Value: 0; Range: 0-6; Units: /HPF; Status: F Test: MUCUS, URINE; Value: SMALL; Range: NEGATIVE; Status: F Test: HYALINE CAST, URINE AUTO; Value: 0; Range: 0-1; Units: /LPF; Status: F Lab Order: Urine Culture; SPEC'M 07/19/16 09:27 Test: URINE CULTURE; Value: <EXTERNAL COMMENT eCWMed> FULL REPORT IN LAB NOTES (eCW and Medent).; Status: F Test: URINE CULTURE; Value: URINE CULTURE RESULT NO GROWTH CLINICAL SIGNIFICANCE 1 ORGANISM; Status: F Lab Order: CRP; SPEC'M 07/19/16 09:27 Test: C REACTIVE PROTEIN QUANTITATIV; Value: < 0.30; Range: 0.00-0.30; Units: MG/DL; Status: F Radiology Order: CT ABD & PELVIS: IV and Oral Contrast Test: CT ABD & PELVIS: IV and Oral Contrast REASON FOR EXAMINATION: rlq, llq pain, n/v/d; CT ABDOMEN/PELVIS WITH IV CONTRAST AND WITH ORAL CONTRAST:; ; HISTORY: Right lower quadrant and left lower quadrant pain. Nausea, vomiting,; and diarrhea.; ; COMPARISON STUDY: June 15, 2015; ; CT CONTRAST DOSE: 100 mL of Isovue-370 is administered intravenously.; ; CT FINDINGS: Preliminary dairy husbandman radiograph demonstrates air in nondilated loops; of small bowel throughout the mid abdomen. The lung bases are clear on axial CT; images. There is no evidence of pleural effusion. The liver and spleen are; normal in size and homogeneous in texture. No adrenal lesion is seen. No; pancreatic abnormality is observed. The gallbladder is unremarkable. No; retroperitoneal mass or adenopathy is seen. Normal caliber aorta is noted. The; kidneys enhance symmetrically and are morphologically intact. Small and large; intestinal bowel loops are unremarkable in the abdomen and pelvis. A normal; appendix is seen partially filled with oral barium. No periappendiceal; inflammation. No evidence of free air or abnormal fluid collection. No bony; destructive lesion or abdominal wall defect is seen.; ; IMPRESSION:; ; No acute intra-abdominal abnormality. Normal appendix seen in the right lower; quadrant.; ; ; Signed by; Brandon Nicolas MD 07/19/2016 03:04 P; Outcome: 12:12 Discharge ordered by Provider. dt4 12:18 Discharge Assessment: Patient awake, alert and oriented x 3. No cognitive and/or dsf functional deficits noted. Patient verbalized understanding of disposition instructions. patient administered narcotics - no. The following High Risk Discharge criteria are identified: None. Discharged to home ambulatory. Condition: stable. Discharge instructions given to patient, Instructed on discharge instructions, follow up and referral plans. medication usage, Demonstrated understanding of instructions, medications, Pt was receptive of discharge instructions/ teaching. Prescriptions given X 1. CT Study completed. Property sent home with patient. 12:19 Patient left the ED. dsf Signatures: Dispatcher [employer] EDMS Colleen Cruz, Reg Reg Victor Hugo, Adilson Strauss RN RN mlb1 Jaja Grijalva RN RN jc4 Chaparrita Preciado, OFFICE CLERK OFFICE CLERK ct3 Merline Zee,RN RN dsf Kostas Villatoro mm15 Little Ivy, PA-C PA-C dt4 Nadege Choudhury,RN RN ja5 Chart Complete MTDD
--- NOTE | 2016-07-21 13:21 | EDDOCDS ---
Physician Documentation [facility] Name: Jovani Sahni Age: 31 yrs Sex: Male : 1985 Arrival Date: 07/19/2016 Time: 08:38 Bed I7 / 29 Private MD: Rosibel Pascual PA-C Disposition: 07/19/16 12:12 Discharged to Home/Self Care. Impression: Lower abdominal pain, unspecified. - Condition is Stable. - Discharge Instructions: Abdominal Pain, Adult. - Prescriptions for Bentyl 20 mg Oral Tablet - take 1 tablet by ORAL route every 6 hours As needed; 20 tablet. - Medication Reconciliation, Local Pharmacy Hours form. - Follow up: Emergency Department; When: As needed; Reason: Worsening of conditions. Follow up: Private Physician; When: 2 - 3 days; Reason: Wound/Symptom Recheck, Recheck today's complaints, Continuance of care. - Problem is new. - Symptoms are unchanged. Historical: - Allergies: no known allergies; - Home Meds: 1. Omeprazole Unknown Oral once daily 2. Depakote 500 mg Oral TbEC 2 tabs 2 times per day 3. Marinol 10 mg Oral cap 1 cap 2 times per day 4. prazosin 2 mg Oral cap 2 caps daily - PMHx: GERD; Migraine Headaches; PTSD; Lyme Disease; - PSHx: none; - Social history: Smoking status: Patient uses tobacco products, light tobacco smoker. No barriers to communication noted, The patient speaks fluent Algerian, Speaks appropriately for age. - Family history: Not pertinent. - : The pt / caregiver states he / she is not on anticoagulants. Home medication list is obtained from the patient. - Exposure Risk Screening:: None identified. Vital Signs: 07/19 09:06 BP 133 / 79; Pulse 74; Resp 16; Temp 98.6(TE); Pulse Ox 100% on R/A; Weight 65.32 kg / mlb1 144.01 lbs (R); Height 5 ft. 59 in. (302.26 cm) (R); Pain 5/10; 10:00 Pain 4/10; dsf 12:17 BP 142 / 82; Pulse 54; Resp 16; Temp 97.4; Pulse Ox 99% ; Pain 5/10; ja5 09:06 Body Mass Index 7.15 (65.32 kg, 302.26 cm) mlb1 MDM: 09:21 NS 0.9% 1000 ml IV at bolus once ordered. dt4 09:21 Ondansetron 4 mg IVP once ordered. dt4 09:21 ketorolac 30 mg IVP once ordered. dt4 09:21 IV Saline Lock ordered. dt4 09:21 Undress patient appropriately for examination ordered. dt4 09:22 CT ABD & PELVIS: IV and Oral Contrast Ordered. EDMS 09:23 Amylase Ordered. EDMS 09:23 Basic Metabolic Profile Ordered. EDMS 09:23 CBC with Diff Ordered. EDMS 09:23 Lipase Ordered. EDMS 09:23 Liver Profile Ordered. EDMS 09:23 Urinalysis Ordered. EDMS 09:23 CRP Ordered. EDMS 09:23 Urine Culture Ordered. EDMS 09:24 NOTHING BY MOUTH+DIET ordered. EDMS 09:45 Diatrizoate Meglumine & Sodium Liquid 10 ml PO once; mix in 290cc of water administer ja5 at 0945 ordered. 09:45 Diatrizoate Meglumine & Sodium Liquid 10 ml PO once; mix in 290cc of water administer ja5 at 1015 ordered. 09:49 Financial registration complete. mm15 10:04 [facility] Payment Agreement was scanned into [employer] and attached to record. mm15 10:30 morphine 4 mg IVP once ordered. dt4 15:45 T-Sheet-- Draft Copy was scanned into [employer] and attached to record. gb 15:45 Radiology Report was scanned into [employer] and attached to record. gb Administered Medications: 09:36 Drug: NS 0.9% 1000 ml [sodium chloride 0.9 % injection solution] Route: IV; Rate: dsf bolus; Site: left antecubital; 11:22 Follow up: IV Status: Completed infusion; IV Intake: 1000ml jc4 09:36 Drug: Ondansetron 4 mg [ondansetron HCl 2 mg/mL intravenous solution (2 mL)] Route: dsf IVP; Site: left antecubital; 09:37 Drug: ketorolac 30 mg [ketorolac 30 mg/mL (1 mL) injection solution (1 mL)] Route: IVP; dsf Site: left antecubital; 10:00 Follow up: Pain 4/10 Adult; Response: Pain is unchanged, physician notified dsf 09:45 Drug: Diatrizoate Meglumine & Sodium 10 ml [diatrizoate meglumine and diat.sodium 66 jc4 %-10 % oral solution (10 mL)] Route: PO; 10:15 Drug: Diatrizoate Meglumine & Sodium 10 ml [diatrizoate meglumine and diat.sodium 66 jc4 %-10 % oral solution (10 mL)] Route: PO; 10:41 Not Given (pt driving ): morphine 4 mg IVP once dsf Signatures: Dispatcher [employer] EDMS Colleen Cruz, Reg Reg gb Victor Hugo, Adilson Strauss RN RN mlb1 Jaja Grijalva RN RN jc4 Merline ZeeRN RN dsf Kostas Villatoro mm15 Little Ivy PA-C PALupe dt4 Nadege Choudhury,RN RN ja5 The chart was reviewed and I authenticate all verbal orders and agree with the evaluation and treatment provided.Attachments: 10:04 [facility] Payment Agreement mm15 15:45 T-Sheet-- Draft Copy gb Chart [facility]
== END 2016-07-19 12:19 | disposition home or self-care (01) ==
LOC: M ED 08:38
DX: R10.31 Right lower quadrant pain (principal); R10.32 Left lower quadrant pain; R11.2 Nausea with vomiting, unspecified; R19.7 Diarrhea, unspecified; K21.9 Gastro-esophageal reflux disease without esophagitis; F43.10 Post-traumatic stress disorder, unspecified; Z86.19 Personal history of other infectious and parasitic diseases; F17.200 Nicotine dependence, unspecified, uncomplicated
CPT/HCPCS: 74177; 80048; 80076; 81001; 82150; 83690; 85025; 86140; 87086; 96361; 96374; 96375; 99284; J1885; J2405; Q9963; Q9967

== ENCOUNTER → 2017-12-25 | Outpatient (CLI) | payer OTHER | LOC: M CARPUL 09:00 | DX: R00.1 Bradycardia, unspecified (principal); I08.3 Combined rheumatic disorders of mitral, aortic and tricuspid valves | CPT/HCPCS: 93306 ==

== ENCOUNTER → 2018-02-25 | Outpatient (REF) | LOC: M SMT 10:24 | DX: Z00.00 Encounter for general adult medical examination without abnormal findings (principal) ==

== ENCOUNTER 2022-01-31 11:47 | Emergency (ER) | payer OTHER ==
[~2022-01-31] VITALS: Ht 175.3 cm; Wt 63.6 kg
[2022-01-31] MEDS ORDERED: PRAZ1CAP (11:55)
[2022-01-31] MEDS ORDERED: ACET1TAB37 PO (11:55)
[2022-01-31] MEDS ORDERED: OMEP40CA4 PO (11:56)
[2022-01-31 14:02] VITALS: O2SAT 99
[2022-01-31] MEDS ORDERED: NS 1,000 ML IV ONE (14:30)
[2022-01-31] MEDS ORDERED: ONDANSETRON 4MG 2ML VIAL IV ONE (14:30)
[2022-01-31] MEDS ORDERED: KETOROLAC 30 MG/ML 1ML VIAL IV ONE (14:30)
[2022-01-31] MEDS ORDERED: ONDA4TAB6 PO (14:43)
[2022-01-31] MEDS ORDERED: BENZ200C70 PO (14:44)
[2022-01-31 15:58] VITALS: BP 131/80
== END 2022-01-31 16:04 | disposition home or self-care (01) ==
LOC: M ED 11:47
DX: U07.1 COVID-19 (principal); K21.9 Gastro-esophageal reflux disease without esophagitis; F43.10 Post-traumatic stress disorder, unspecified; F17.200 Nicotine dependence, unspecified, uncomplicated; Z88.9 Allergy status to unspecified drugs, medicaments and biological substances; Z79.899 Other long term (current) drug therapy
CPT/HCPCS: 71045; 96361; 96374; 99284; J1885; J2405

== ENCOUNTER → 2022-02-10 | Outpatient (CLI) | payer OTHER ==
[~2022-02-10] MED LIST: ACET1TAB37 PO; BENZ200C70 PO; OMEP40CA4 PO; ONDA4TAB6 PO; PRAZ1CAP
== END ==
LOC: M WUC 09:35
DX: M79.674 Pain in right toe(s) (principal)

== ENCOUNTER 2022-09-13 13:18 | Emergency (ER) | payer OTHER ==
[~2022-09-13] VITALS: Ht 175.3 cm; Wt 68.3 kg
[2022-09-13] MEDS ORDERED: BOOSTRIX/ADACEL VACCINE (DIPHTH/PERTUSS/ACELL/TETANUS) 0.5ML SYR IM ONE (14:20)
[2022-09-13] MEDS ORDERED: LIDOCAINE 1% MDV 20ML VIAL INFIL ONE (14:20)
[2022-09-13] MEDS ORDERED: ACETAMINOPHEN 325 MG TAB PO ONE (14:20)
[2022-09-13] MEDS ORDERED: ceFAZolin SOD 2 GM in IV 1 EA IV ONE (15:35)
[2022-09-13] MEDS ORDERED: NEOSPORIN OINT 0.9 GM PKT TOP ONE (16:00)
[2022-09-13] MEDS ORDERED: IBUP80TA PO (16:12)
[2022-09-13] MEDS ORDERED: CEPH500C PO (16:12)
[2022-09-13 16:35] VITALS: BP 132/74
== END 2022-09-13 16:38 | disposition home or self-care (01) ==
LOC: M ED 13:18
DX: S61.012A Laceration without foreign body of left thumb without damage to nail, initial encounter (principal); S66.40 Unspecified injury of intrinsic muscle, fascia and tendon of thumb at wrist and hand level; W26.0XXA Contact with knife, initial encounter; F43.10 Post-traumatic stress disorder, unspecified; K21.9 Gastro-esophageal reflux disease without esophagitis; F17.200 Nicotine dependence, unspecified, uncomplicated; F12.10 Cannabis abuse, uncomplicated; Z87.820 Personal history of traumatic brain injury; Y92.009 Unspecified place in unspecified non-institutional (private) residence as the place of occurrence of the external cause; Z88.9 Allergy status to unspecified drugs, medicaments and biological substances; Z79.83 Long term (current) use of bisphosphonates; Z79.899 Other long term (current) drug therapy; Z23 Encounter for immunization
CPT/HCPCS: 12001; 73140; 90471; 90715; 96365; 99284; J0690

== ENCOUNTER 2024-09-26 09:57 | Emergency (ER) | payer OTHER ==
[~2024-09-26] VITALS: Ht 175.3 cm; Wt 69.9 kg
[~2024-09-26 09:57] MED LIST changes: +CEPH500C PO; +IBUP80TA PO; +ONDA-282 PO; -ONDA4TAB6 PO
[2024-09-26] MEDS ORDERED: ISOVUE-370 76% 100ML VIAL As Ordered ONE (10:22)
[2024-09-26 10:53] LABS: BASO % 0.6 % (0.0-1.0); EOS # 0.1 10^3/uL (0.0-0.5); EOS % 1.3 % (0.0-3.0); HEMATOCRIT 43.1 % (42.0-52.0); HEMOGLOBIN 14.6 g/dl (13.5-17.5); LYMPH # 1.3 10^3/uL (1.5-5.0); LYMPH % 18.8 % (24.0-44.0); MEAN CORPUSCULAR HEMOGLOBIN 32.2 pg (27.0-33.0); MEAN CORPUSCULAR HGB CONC 33.9 g/dl (32.0-36.5); MEAN CORPUSCULAR VOLUME 95.1 fl (80.0-96.0); MONO # 0.7 10^3/uL (0.0-0.8); MONO % 10.1 % (2.0-8.0); NEUTROPHILS # 4.6 10^3/uL (1.5-8.5); NEUTROPHILS % 68.9 % (36.0-66.0); PLATELET COUNT, AUTOMATED 246 10^3/uL (150-450); RED BLOOD COUNT 4.53 10^6/uL (4.30-6.10); WHITE BLOOD COUNT 6.7 10^3/uL (4.0-10.0)
[2024-09-26] MEDS: NS 500 ML IV ONE (10:56)
[2024-09-26 10:58] LABS: VENOUS BASE EXCESS -0.9 (-2.0-2.0); VENOUS HCO3 25.5 MMOL/L (23.0-27.0); VENOUS O2 SATURATION 73.8 % (60.0-80.0); VENOUS PARTIAL PRESSURE CO2 48.6 mmHg (38.0-50.0); VENOUS PARTIAL PRESSURE O2 37.6 mmHg (30.0-50.0); VENOUS PH 7.337 UNITS (7.330-7.430); VENOUS STANDARD HCO3 23.1 MMOL/L; VENOUS TOTAL CO2 26.9 MMOL/L (24.0-28.0)
[2024-09-26 11:17] LABS: INR 1.09; PARTIAL THROMBOPLASTIN TIME 31.4 SECONDS (24.8-34.2); PROTHROMBIN TIME 14.4 SECONDS (12.5-14.5)
[2024-09-26 11:19] LABS: LIPASE 19 U/L (12-53)
[2024-09-26 11:22] LABS: ALBUMIN 4.1 G/DL (3.2-5.2); ALKALINE PHOSPHATASE 76 U/L (40-129); ALT/SGPT 21 U/L (7.0-40); AMYLASE 95 U/L (30-118); AST/SGOT 15 U/L (<34); BILIRUBIN,DIRECT 0.2 MG/DL (<0.4); BILIRUBIN,TOTAL 0.5 MG/DL (0.3-1.2); BLOOD UREA NITROGEN 17 MG/DL (9-23); CALCIUM LEVEL 9.2 MG/DL (8.5-10.1); CARBON DIOXIDE LEVEL 27 MMOL/L (20-31); CHLORIDE LEVEL 105 MMOL/L (98-107); GLOMERULAR FILTRATION RATE > 90.0 (>60); GLUCOSE, FASTING 99 MG/DL (60-100); POTASSIUM SERUM 4.2 MMOL/L (3.5-5.1); SODIUM LEVEL 139 MMOL/L (136-145)
[2024-09-26] MEDS ORDERED: MORPHINE 2 MG/ML 1ML VIAL IV PRN (11:30)
[2024-09-26] MEDS ORDERED: fentaNYL 100 MCG/2 ML INJECTION IV PRN (11:50)
[2024-09-26] MEDS: KETOROLAC 30 MG/ML 1ML VIAL IV ONE (13:41)
[2024-09-26 13:42] VITALS: O2SAT 98
[2024-09-26 13:43] VITALS: BP 124/79; TEMP 97.5; O2SAT 99
[2024-09-27] MEDS ORDERED: IBUP80TA PO (20:14)
== END 2024-09-26 13:53 | disposition home or self-care (01) ==
LOC: EDBD 09:57 → M ED 09:57
DX: S80.12XA Contusion of left lower leg, initial encounter (principal); S30.1XXA Contusion of abdominal wall, initial encounter; S13.4XXA Sprain of ligaments of cervical spine, initial encounter; S23.3XXA Sprain of ligaments of thoracic spine, initial encounter; S33.5XXA Sprain of ligaments of lumbar spine, initial encounter; R91.1 Solitary pulmonary nodule; Y92.9 Unspecified place or not applicable; Y93.9 Activity, unspecified; Y99.9 Unspecified external cause status; V29.408A Other motorcycle driver injured in collision with unspecified motor vehicles in traffic accident, initial encounter; K21.9 Gastro-esophageal reflux disease without esophagitis; F43.10 Post-traumatic stress disorder, unspecified; Z87.820 Personal history of traumatic brain injury; Z88.8 Allergy status to other drugs, medicaments and biological substances; Z79.1 Long term (current) use of non-steroidal anti-inflammatories (NSAID); Z79.899 Other long term (current) drug therapy
CPT/HCPCS: 70450; 71045; 71260; 72125; 72128; 72131; 73502; 73552; 73590; 73630; 74177; 80047; 80048; 80076; 82150; 82803; 83605; 83690; 85025; 85610; 85730; 86850; 86900; 86901; 93041; 94760; 96374; 99285; J1885; Q9967

== ENCOUNTER 2024-09-27 16:57 | Emergency (ER) | payer OTHER ==
[~2024-09-27] VITALS: Ht 175.3 cm; Wt 65.0 kg
[2024-09-27 17:15] VITALS: BP 130/89; TEMP 99.9; O2SAT 97
[2024-09-27] MEDS: IBUPROFEN 800 MG TAB PO ONE (19:04)
[2024-09-27] MEDS ORDERED: IBUP80TA PO (20:14)
== END 2024-09-27 20:17 | disposition home or self-care (01) ==
LOC: M ED 16:57
DX: M25.462 Effusion, left knee (principal); V89.2XXA Person injured in unspecified motor-vehicle accident, traffic, initial encounter; Y92.410 Unspecified street and highway as the place of occurrence of the external cause; Y93.89 Activity, other specified; Y99.9 Unspecified external cause status; Z88.8 Allergy status to other drugs, medicaments and biological substances; Z79.899 Other long term (current) drug therapy